=== PATIENT | male | born 1990 | race Caucasian/White ===

== ENCOUNTER → 2019-12-15 14:02 | Outpatient (BNVA) | payer SELFPAY | PROVIDERS: Family Provider Family Medicine; Visit Provider Nurse Practitioner | DX: J02.9 Acute pharyngitis, unspecified (principal); J01.90 Acute sinusitis, unspecified | CPT/HCPCS: 87071; 87880 ==

== ENCOUNTER 2020-07-31 09:22 | Outpatient (CLI) | payer OTHER, SELFPAY ==
--- NOTE | 2020-07-31 09:29 | XR_ITS ---
WS: [id number] PROCEDURE: XR chest 2V* [id number] CLINICAL INFORMATION: REGULATED PROGRAM MONITERING COMPARISON: FINDINGS: Heart: Normal cardiac silhouette. Lungs: Lungs are clear. No consolidation or pleural fluid. No acute pulmonary infiltrates. Bones: Normal visualized bony structures. XR/XR chest 2V* [id number] IMPRESSION: Normal chest
== END 2020-07-31 09:23 | disposition home or self-care (01) ==
DX: Z13.6 Encounter for screening for cardiovascular disorders (principal)
CPT/HCPCS: 71046

== ENCOUNTER 2022-05-18 15:31 | Emergency (ER) | payer OTHER, SELFPAY ==
[2022-05-18 15:52] VITALS: BP 139/95; PULSE 85; RESP 16; TEMP 36.6; O2SAT 99
--- NOTE | 2022-05-18 15:55 | W.ED.HEATRA ---
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 No LOC. Patient has been acting normal since event. MD Complaint: head injury Onset (ago): hour(s) Mechanism of Injury: work related injury Place: home Loss of Consciousness: no Severity: mild Radiation: none Other Injuries: none Associated symptoms: Reports no associated symptoms; Deny confusion, nausea, neck pain, vertigo or vomiting Review of Systems Eyes: Denies: change in vision, blurry vision or blind spots GI: Denies: nausea or vomiting Musc: Denies: neck pain Skin/Breast: Reports: other (scalp laceration) Neuro: Reports: headache(s); Denies: numbness in extremities, weakness in extremities, sensory changes, lack of coordination, difficulty walking, dizziness, vertigo, confusion, behavioral changes, Slurred speech present, difficulty communicating thoughts or seizure-like activity PFS ED PFSH: Social History Smoking and tobacco status: former smoker Physical Exam Const: COMMON NORMALS: no acute distress, average body habitus, patient oriented x3, no limitations, healthy appearing, alert and well nourished GENERAL APPEARANCE: cooperative ORIENTATION/CONSCIOUSNESS: Yes awake, Yes oriented to person, Yes oriented to place and Yes oriented to time HENMT: COMMON NORMALS: normocephalic HEAD & SCALP: normal to inspection and normocephalic HEAD IMAGES: 1. 2cm linear scalp laceration FACE & SINUS: normal facial exam Neck/C-Spine: COMMON NORMALS: full ROM CERVICAL SPINE: No Cervical spine tenderness Neuro: ATIF COMA SCALE: document GCS findings Atif coma scale eye opening: Spontaneous Atif coma scale verbal response: Orientated Atif coma scale motor response: Obey commands Atif coma scale total score: 15 COMMON NORMALS: patient oriented x3, CN's II-XII intact bilaterally, moves all extremities, no focal motor deficits, no sensory deficits noted and gait normal SENSORIUM/ORIENTATION: Yes alert, Yes oriented to person, Yes oriented to place and Yes oriented to time Skin: TRAUMA: laceration Procedures Laceration Laceration 1: Site: scalp Size (cm): 2.0 Description: linear Depth: simple, single layer Local Anesthetic: lidocaine 1% Amount of anesthesia used (mL): 3.0 Pre-repair: wound explored and irrigated extensively Skin layer closed with: other (morris) Number of sutures: 4 Technique: simple, interrupted Course Vital Signs: Vital signs: Vital Signs Temperature 97.8 F 05/18/22 15:52 Pulse Rate 85 05/18/22 15:52 Respiratory Rate 16 05/18/22 15:52 Blood Pressure 139/95 05/18/22 15:52 Pulse Oximetry 99 05/18/22 15:52 MDM - Head Injury Medcial Decision Making Wound was copiously irrigated and repaired as documented. Wound care as well as minor head injury precautions discussed. Return to ED precautions discussed. Discharge Plan Discharge Patient Disposition: Home Clinical Impression: Laceration of scalp Qualifiers: Encounter type: initial encounter Qualified Code(s): S01.01XA - Laceration without foreign body of scalp, initial encounter Condition: Stable Prescriptions: No Action No Known Home Medications amoxicillin 500 mg capsule 1,000 mg PO BID 7 Days Qty: 28 0RF Discharge Orders: Discharge ED (Routine); Ordered 05/18/22 Ordered By: Sonia Moore Patient Instructions: Scalp Laceration, Staple Care (ED) Activity Restrictions/Additional Instructions: Keep wound/laceration clean with warm soap and water twice daily. Monitor for signs of infection such as redness, swelling, increased pain, or drainage. Please seek medical re-evaluation if these occur. If you received sutures/morris today these will need to be removed (unless you were told by the provider that they are absorbable). The provider should have discussed with you the length of time until removal-7 DAYS. You may return to the emergency department for this service. Coding Level of Care Code ED Sales Planning Manager for Alba Mendoza
== END 2022-05-18 16:18 | disposition home or self-care (01) ==
PROVIDERS: Emergency Provider Physician Assistant
DX: S01.01XA Laceration without foreign body of scalp, initial encounter (principal); Z87.891 Personal history of nicotine dependence; W20.8XXA Other cause of strike by thrown, projected or falling object, initial encounter
CPT/HCPCS: 12001; 99282

== ENCOUNTER 2022-05-19 10:01 | Outpatient (CLI) | payer OTHER, SELFPAY ==
--- NOTE | 2022-05-19 | XR_ITS ---
WS: [id number] Exam: XR chest 2V* [id number] Date/Time of Exam: 05/19/2022 10:17 AM Reason For Exam: REGULATED PROGRAM MONITORING Comparison 07/31/2020. Findings: The lungs are clear and fully expanded. Costophrenic angles are sharp. No infiltrates. Bronchovascula r relief appears normal. Cardiac silhouette is unremarkable. Bony elements are intact. XR/XR chest 2V* [id number] IMPRESSION: Unremarkable chest radiograph.
== END 2022-05-19 10:02 | disposition home or self-care (01) ==
LOC: RAD 07-08 12:52
PROVIDERS: Visit Provider Preventive Medicine Occupational Medicine
DX: Z13.6 Encounter for screening for cardiovascular disorders (principal)
CPT/HCPCS: 71046

== ENCOUNTER 2022-11-13 09:17 | Emergency (ER) | payer OTHER, SELFPAY ==
--- NOTE | 2022-11-13 09:19 | XR_ITS ---
WS: [id number] XR chest 1V portable [id number] REASON FOR EXAM: cp FINDINGS: The chest is stable compared to 05/19/2022. The heart and mediastinum are within normal limits. Calcified granulomatous disease in both hemithoraces. No active pulmonary parenchymal or pleural disease is noted. No significant abnormality of the bony thorax. XR/XR chest 1V portable [id number] IMPRESSION: No significant chest abnormality.
[2022-11-13 09:20] VITALS: BP 135/87; PULSE 84; RESP 17; TEMP 37.2; O2SAT 100; BMI 26.1
--- NOTE | 2022-11-13 09:22 | ECG_ITS ---
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 Measurements Intervals [place] Rate: 76 P: 38 WI: 163 QRS: 66 QRSD: 92 T: 51 QT: 370 QTc: 416 Interpretive Statements SINUS RHYTHM Compared to ECG 06/18/2018 19:11:06 No significant changes Electronically Signed On 11-13-2022 13:00:56 CDT by Sara Bean M.D. [id number] f
[2022-11-13 09:46] LABS: Basophils % 0.3 %; Eosinophils # 0.1 10^3/uL (0.0-0.8); Eosinophils % 0.8 %; Hematocrit 45.4 % (42.0-52.0); Hemoglobin 15.9 g/dL (11.7-16.6); Lymphocytes # 1.8 10^3/uL (0.8-4.8); Lymphocytes % 27.7 %; Mean Corpuscular Hemoglobin 28.8 pg (28.0-34.0); Mean Corpuscular Volume 82.1 fl (80-94); Mean Platelet Volume 9.8 fL (7.4-10.4); Monocytes # 0.7 10^3/uL (0.2-0.9); Monocytes % 10.3 %; Neutrophils # 3.87 10^3/uL (1.8-7.7); Neutrophils % 60.7 %; Nucleated Red Blood Cells % 0 %; Platelet Count 286 10^3/cmm (130-400); Red Blood Count 5.53 10^6/uL (4.1-5.3); Red Cell Distribution Width 11.9 % (12.1-15.1); White Blood Count 6.4 10^3/uL (4.0-10.0)
--- NOTE | 2022-11-13 09:46 | CT_ITS ---
WS: [id number] CT HEAD NONCONTRAST HISTORY: Presyncopal episode, left arm numbness TECHNIQUE: Contiguous axial imaging performed through the brain in 2.5 mm imaging. Bone and soft tiss ue windows. Sagittal and coronal reformats reviewed. All CT scans at [facility] use at least one of these dose optimization techniques: automated exposure control; mA and/or kV adjustment per pa tient size (includes targeted exams where dose is matched to clinical indication); or iterative recon struction. DLP: 1130.77 mGy.cm COMPARISON: 07/18/2016 No acute intracranial hemorrhage, midline shift or mass effect. No atrophy or prior infarcts or herniation. Ventricles: Normal size with no hydrocephalus. No inferior displacement of the cerebellar tonsils. Paranasal sinuses: As visualized are clear. Mastoid air cells: Well pneumatized. Calvarium and scalp: Skull is intact with no soft tissue edema or swelling. CT/CT head wo con* [id number] IMPRESSION: Negative head CT.
--- NOTE | 2022-11-13 09:47 | W.ED.WEAKNES ---
Documented by User: BERLIN uHa 11/13/22 11:57 HPI - Weakness General: Chief complaint: Weakness Stated complaint: CHEST PAIN/ NEAR SYNCOPE Time Seen by Provider: 11/13/22 09:19 History of Present Illness: Patient is a 32-year-old male who comes to the ED via EMS for near syncopal episode and chest pain. Patient says symptoms started while he was at work just prior to arrival. He woke up feeling normal today and denies any preceding symptoms over the past couple days. Today while at work he was sitting down and when he went to stand up he started walking and he got nauseous, lightheaded and his heart was pounding in his chest. He was having chest pain as well on the left side of his chest and then he felt the numbness tingling and pain radiating down his left arm. He also endorses the pain radiating to the middle of his back. He describes hearing his heart pounding in his ears. He was getting confused and his coworker said they were trying to talk to him and when he would talk it was not making much sense or he was having difficulty even speaking. Patient describes feeling like right on the verge of about to pass out but he did not. He was then brought in by EMS and says symptoms have mostly resolved but he still has a little bit of mild chest pain and he describes his head as feeling woozy and lightheaded. Denies any drug use. Patient has a history of hereditary hemorrhagic telangiectasia. Patient says he only complication or symptoms he has had of his HHT in the past is more frequent nosebleeds. Associated symptoms: Reports chest pain, confusion and nausea; Denies chills, dysuria, fever(s), headache(s) or vomiting Review of Systems Const: Denies: fever(s), chills or fatigue Eyes: Denies: change in vision or eye discomfort ENMT: Denies: throat pain, odynophagia, nasal discharge or nasal congestion Card: Reports: chest pain, lightheadedness and pre-syncope; Denies: palpitations, edema, swelling of feet/ankles, dyspnea on exertion or orthopnea Resp: Denies: dyspnea, productive cough or non-productive cough GI: Reports: nausea; Denies: abdominal pain, vomiting, diarrhea, constipation or hematochezia : Denies: flank pain, difficulty urinating, dysuria or hematuria Musc: Denies: neck pain, back pain or extremity swelling Skin/Breast: Denies: rash or new lesions Neuro: Reports: numbness in extremities (Left arm), dizziness and confusion; Denies: headache(s) or weakness in extremities PFSH ED PFSH: Medical History HHT (hereditary hemorrhagic telangiectasia) Surgical History No pertinent past surgical history Social History Smoking and tobacco status: former smoker Physical Exam Const: COMMON NORMALS: no acute distress, patient oriented x3 and alert HENMT: COMMON NORMALS: normocephalic HEAD & SCALP: normocephalic MOUTH: Normal oral and palatal mucosa present THROAT: posterior oropharynx normal and uvula midline Eye: COMMON NORMALS: Equal, round and reactive pupils present and EOMs intact bilaterally GENERAL EYE: appearance normal, both eyes and all related structures PUPIL: Yes Equal, round and reactive pupils present Neck/C-Spine: COMMON NORMALS: supple GENERAL: Yes normal visual inspection Lymph: LYMPHATIC: no lymphadenopathy noted Resp: COMMON NORMALS: normal respiratory effort, No retractions, No use of accessory muscles and clear to auscultation bilaterally AUSCULTATION: clear to auscultation bilaterally Cardio: COMMON NORMALS: regular rate, regular rhythm, S1 normal heart sound present, S2 normal heart sound present, No gallops present (Cardio), No clicks present (Cardio), No murmurs present (Cardio) and Peripheral pulses 2+ throughout RATE: regular rate RHYTHM: regular rhythm HEART SOUNDS: S1 normal heart sound present and S2 normal heart sound present PERIPHERAL PULSES: Peripheral pulses 2+ throughout GI: COMMON NORMALS: Normal to inspection, nondistended, normoactive bowel sounds present, Soft to palpation, non-tender and no masses PALPATION: Yes Soft to palpation : COMMON NORMALS: Yes no CVA tenderness BLADDER/KIDNEY EXAM: Yes no CVA tenderness Back/Pelvis: COMMON NORMALS: no CVA tenderness Extremity: GENERAL: Yes normal exam except as noted Neuro: COMMON NORMALS: patient oriented x3, CN's II-XII intact bilaterally, moves all extremities, no focal motor deficits and no sensory deficits noted SENSORIUM/ORIENTATION: Yes alert COORDINATION/BALANCE: [id number] test normal SPEECH: speech normal SENSORY EXAM: Yes extremities (intact) MOTOR EXAM: 5/5 motor strength present throughout and Pronator motor function not present COORDINATION: [id number] test normal Skin: COMMON NORMALS: no rashes or lesions noted GENERAL SKIN EXAM: no rashes or lesions noted and dry skin Course Reevaluation(s): Reevaluation #1: I went in and checked on patient and he is feeling a lot better now. He does not have any more pain radiating into his back and denies any nausea Time: 10:23 Vital Signs: Vital signs: Vital Signs Temperature 98.9 F 11/13/22 09:20 Pulse Rate 67 11/13/22 12:14 Respiratory Rate 18 11/13/22 12:14 Blood Pressure 118/84 11/13/22 12:14 Pulse Oximetry 100 11/13/22 12:14 Oxygen Delivery Me thod Room Air 11/13/22 11:29 MDM - Weakness Medical Decision Making Patient is a 32-year-old male who comes to the ED via EMS for near syncopal episode and chest pain. Patient says symptoms started while he was at work just prior to arrival. He woke up feeling normal today and denies any preceding symptoms over the past couple days. Today while at work he was sitting down and when he went to stand up he started walking and he got nauseous, lightheaded and his heart was pounding in his chest. He was having chest pain as well on the left side of his chest and then he felt the numbness tingling and pain radiating down his left arm. He also endorses the pain radiating to the middle of his back. He describes hearing his heart pounding in his ears. He was getting confused and his coworker said they were trying to talk to him and when he would talk it was not making much sense or he was having difficulty even speaking. Patient describes feeling like right on the verge of about to pass out but he did not. He was then brought in by EMS and says symptoms have mostly resolved but he still has a little bit of mild chest pain and he describes his head as feeling woozy and lightheaded. Denies any drug use. Patient has a history of hereditary hemorrhagic telangiectasia. Patient says he only complication or symptoms he has had of his HHT in the past is more frequent nosebleeds. Vitals are stable. Patient appears nontoxic and in no acute distress or pain. His exam is benign and neuro exam shows no deficits. CBC and CMP are unremarkable. Troponins negative. EKG shows normal sinus rhythm with no ST segment elevation or depression seen. Chest x-ray shows no acute findings. Head CT shows no acute findings. Patient was given a liter of IV fluids and his symptoms had resolved completely and he feels normal and back to baseline. Was diagnosed with atypical chest pain and near syncope. He was stable for discharge home and told to follow-up with his PCP within the next week for reevaluation. Return to ED precautions given. Patient understood and agreed with plan. I discussed patient case with Dr. Marcus and he agreed with plan. Lab Data I reviewed the patient's lab results. 11/13/22 09:02 11/13/22 09:02 Radiology Impressions Chest X-Ray 11/13/22 09:19 IMPRESSION: No significant chest abnormality. Head CT 11/13/22 09:46 IMPRESSION: Negative head CT. Laboratory Results WBC 6.4 10^3/uL (4.0-10.0) 11/13/22 09:02 RBC 5.53 10^6/uL (4.1-5.3) H 11/13/22 09:02 Hgb 15.9 g/dL (11.7-16.6) 11/13/22 09:02 Hct 45.4 % (42.0-52.0) 11/13/22 09:02 MCV 82.1 fl (80-94) 11/13/22 09:02 MCH 28.8 pg (28.0-34.0) 11/13/22 09:02 MCHC 35.0 g/dL (30.0-36.0) 11/13/22 09:02 RDW 11.9 % (12.1-15.1) L 11/13/22 09:02 Plt Count 286 10^3/cmm (130-400) 11/13/22 09:02 MPV 9.8 fL (7.4-10.4) 11/13/22 09:02 Neut % (Auto) 60.7 % 11/13/22 09:02 Lymph % (Auto) 27.7 % 11/13/22 09:02 Churchill % (Auto) 10.3 % 11/13/22 09:02 Eos % (Auto) 0.8 % 11/13/22 09:02 Baso % (Auto) 0.3 % 11/13/22 09:02 Neut # (Auto) 3.87 10^3/uL (1.8-7.7) 11/13/22 09:02 Lymph # (Auto) 1.8 10^3/uL (0.8-4.8) 11/13/22 09:02 Churchill # (Auto) 0.7 10^3/uL (0.2-0.9) 11/13/22 09:02 Eos # (Auto) 0.1 10^3/uL (0.0-0.8) 11/13/22 09:02 Baso # (Auto) 0.0 10^3/uL (0.0-0.1) 11/13/22 09:02 Nucleated RBC % (auto) 0 % 11/13/22 09:02 Nucleated RBCs # 0.0 /100WBC 11/13/22 09:02 Sodium 137 mmol/L (136-145) 11/13/22 09:02 Potassium 4.1 mmol/L (3.5-5.1) 11/13/22 09:02 Chloride 103 mmol/L (98-107) 11/13/22 09:02 Carbon Dioxide 21 mmol/L (22-29) L 11/13/22 09:02 Anion Gap 17.1 (5-19) 11/13/22 09:02 BUN 16 mg/dL (6-20) 11/13/22 09:02 Creatinine 0.8 mg/dL (0.7-1.2) 11/13/22 09:02 GFR Calculation 112.0 mL/min (90-130) 11/13/22 09:02 Glucose 101 mg/dL (65-115) 11/13/22 09:02 Calculated Osmolality 285 mOsm/kg (285-295) 11/13/22 09:02 Calcium 9.8 mg/dL (8.5-10.5) 11/13/22 09:02 Total Bilirubin 0.9 mg/dL (0.15-1.2) 11/13/22 09:02 AST 15 U/L (0-40) 11/13/22 09:02 ALT 14 U/L (0-41) 11/13/22 09:02 Alkaline Phosphatase 51 U/L (40-130) 11/13/22 09:02 Troponin T Baseline 6 ng/L (0-15) 11/13/22 09:02 Troponin T 120 Minute 7.11 ng/L (0-15) 11/13/22 11:13 Delta Troponin T 1.11 ABS# (0-10) 11/13/22 11:13 Total Protein 7.2 g/dL (6.6-8.7) 11/13/22 09:02 Albumin 5.0 g/dL (3.5-5.2) 11/13/22 09:02 Globulin 2.2 g/dL (1.3-4.6) 11/13/22 09:02 EKG Data EKG 1: EKG interpretation date: 11/13/22 Interpretation: Normal sinus rhythm, 76 bpm, no ST segment elevation or depression seen. Discharge Plan Discharge Patient Disposition: Home Clinical Impression: Near syncope, Atypical chest pain Condition: Stable Prescriptions: No Action famotidine 20 mg tablet 20 mg PO BID Discharge Orders: Discharge ED (Routine); Ordered 11/13/22 Ordered By: Trae Pelayo Discharge Diet: Regular Discharge Activity: Increase activity as tolerated Patient Instructions: Chest Pain (ED), Near Syncope (ED), Noncardiac Chest Pain (ED) Activity Restrictions/Additional Instructions: Follow-up with medical provider as directed in the next 5 to 7 days for reevaluation. Return to the ER or your medical provider if condition worsens. Please read and understand discharge instructions. Thank you for choosing [facility] for your healthcare needs today. Please realize this is an emergency room and that we are providing you with a medical screening exam and this may not be complete and all inclusive of all the testing and or work up that you may need to determine your ailment or severity of your illness. It is very important that you follow up as instructed or that you return to the Emergency Department should you have concerns or if your condition changes or worsens in any way. Coding Level of Care Code ED Emergency Vehicle Operations Instructor for Chg Fwd Documented by User: Mason Marcus DO 11/13/22 13:51 HPI - Weakness General: Chief complaint: Weakness Stated complaint: CHEST PAIN/ NEAR SYNCOPE Time Seen by Provider: 11/13/22 09:19 [facility] ED PFSH: Medical History HHT (hereditary hemorrhagic telangiectasia) Surgical History No pertinent past surgical history Social History Smoking and tobacco status: former smoker Course Vital Signs: Vital signs: Vital Signs Temperature 98.9 F 11/13/22 09:20 Pulse Rate 67 11/13/22 12:14 Respiratory Rate 18 11/13/22 12:14 Blood Pressure 118/84 11/13/22 12:14 Pulse Oximetry 100 11/13/22 12:14 Oxygen Delivery Me thod Room Air 11/13/22 11:29 MDM - Weakness Medical Decision Making Patient is a 32-year-old male who comes to the ED via EMS for near syncopal episode and chest pain. Patient says symptoms started while he was at work just prior to arrival. He woke up feeling normal today and denies any preceding symptoms over the past couple days. Today while at work he was sitting down and when he went to stand up he started walking and he got nauseous, lightheaded and his heart was pounding in his chest. He was having chest pain as well on the left side of his chest and then he felt the numbness tingling and pain radiating down his left arm. He also endorses the pain radiating to the middle of his back. He describes hearing his heart pounding in his ears. He was getting confused and his coworker said they were trying to talk to him and when he would talk it was not making much sense or he was having difficulty even speaking. Patient describes feeling like right on the verge of about to pass out but he did not. He was then brought in by EMS and says symptoms have mostly resolved but he still has a little bit of mild chest pain and he describes his head as feeling woozy and lightheaded. Denies any drug use. Patient has a history of hereditary hemorrhagic telangiectasia. Patient says he only complication or symptoms he has had of his HHT in the past is more frequent nosebleeds. Vitals are stable. Patient appears nontoxic and in no acute distress or pain. His exam is benign and neuro exam shows no deficits. CBC and CMP are unremarkable. Troponins negative. EKG shows normal sinus rhythm with no ST segment elevation or depression seen. Chest x-ray shows no acute findings. Head CT shows no acute findings. Patient was given a liter of IV fluids and his symptoms had resolved completely and he feels normal and back to baseline. Was diagnosed with atypical chest pain and near syncope. He was stable for discharge home and told to follow-up with his PCP within the next week for reevaluation. Return to ED precautions given. Patient understood and agreed with plan. I discussed patient case with Dr. Marcus and he agreed with plan. Chart reviewed and patient discussed with midlevel. Agree with assessment and plan. Lab Data 11/13/22 09:02 11/13/22 09:02 Radiology Impressions Chest X-Ray 11/13/22 09:19 IMPRESSION: No significant chest abnormality. Head CT 11/13/22 09:46 IMPRESSION: Negative head CT. Laboratory Results WBC 6.4 10^3/uL (4.0-10.0) 11/13/22 09:02 RBC 5.53 10^6/uL (4.1-5.3) H 11/13/22 09:02 Hgb 15.9 g/dL (11.7-16.6) 11/13/22 09:02 Hct 45.4 % (42.0-52.0) 11/13/22 09:02 MCV 82.1 fl (80-94) 11/13/22 09:02 MCH 28.8 pg (28.0-34.0) 11/13/22 09:02 MCHC 35.0 g/dL (30.0-36.0) 11/13/22 09:02 RDW 11.9 % (12.1-15.1) L 11/13/22 09:02 Plt Count 286 10^3/cmm (130-400) 11/13/22 09:02 MPV 9.8 fL (7.4-10.4) 11/13/22 09:02 Neut % (Auto) 60.7 % 11/13/22 09:02 Lymph % (Auto) 27.7 % 11/13/22 09:02 Churchill % (Auto) 10.3 % 11/13/22 09:02 Eos % (Auto) 0.8 % 11/13/22 09:02 Baso % (Auto) 0.3 % 11/13/22 09:02 Neut # (Auto) 3.87 10^3/uL (1.8-7.7) 11/13/22 09:02 Lymph # (Auto) 1.8 10^3/uL (0.8-4.8) 11/13/22 09:02 Churchill # (Auto) 0.7 10^3/uL (0.2-0.9) 11/13/22 09:02 Eos # (Auto) 0.1 10^3/uL (0.0-0.8) 11/13/22 09:02 Baso # (Auto) 0.0 10^3/uL (0.0-0.1) 11/13/22 09:02 Nucleated RBC % (auto) 0 % 11/13/22 09:02 Nucleated RBCs # 0.0 /100WBC 11/13/22 09:02 Sodium 137 mmol/L (136-145) 11/13/22 09:02 Potassium 4.1 mmol/L (3.5-5.1) 11/13/22 09:02 Chloride 103 mmol/L (98-107) 11/13/22 09:02 Carbon Dioxide 21 mmol/L (22-29) L 11/13/22 09:02 Anion Gap 17.1 (5-19) 11/13/22 09:02 BUN 16 mg/dL (6-20) 11/13/22 09:02 Creatinine 0.8 mg/dL (0.7-1.2) 11/13/22 09:02 GFR Calculation 112.0 mL/min (90-130) 11/13/22 09:02 Glucose 101 mg/dL (65-115) 11/13/22 09:02 Calculated Osmolality 285 mOsm/kg (285-295) 11/13/22 09:02 Calcium 9.8 mg/dL (8.5-10.5) 11/13/22 09:02 Total Bilirubin 0.9 mg/dL (0.15-1.2) 11/13/22 09:02 AST 15 U/L (0-40) 11/13/22 09:02 ALT 14 U/L (0-41) 11/13/22 09:02 Alkaline Phosphatase 51 U/L (40-130) 11/13/22 09:02 Troponin T Baseline 6 ng/L (0-15) 11/13/22 09:02 Troponin T 120 Minute 7.11 ng/L (0-15) 11/13/22 11:13 Delta Troponin T 1.11 ABS# (0-10) 11/13/22 11:13 Total Protein 7.2 g/dL (6.6-8.7) 11/13/22 09:02 Albumin 5.0 g/dL (3.5-5.2) 11/13/22 09:02 Globulin 2.2 g/dL (1.3-4.6) 11/13/22 09:02 Discharge Plan Discharge Patient Disposition: Home Clinical Impression: Near syncope, Atypical chest pain Condition: Stable Prescriptions: No Action famotidine 20 mg tablet 20 mg PO BID Discharge Orders: Discharge ED (Routine); Ordered 11/13/22 Ordered By: Trae Pelayo Discharge Diet: Regular Discharge Activity: Increase activity as tolerated Patient Instructions: Chest Pain (ED), Near Syncope (ED), Noncardiac Chest Pain (ED) Activity Restrictions/Additional Instructions: Follow-up with medical provider as directed in the next 5 to 7 days for reevaluation. Return to the ER or your medical provider if condition worsens. Please read and understand discharge instructions. Thank you for choosing [facility] for your healthcare needs today. Please realize this is an emergency room and that we are providing you with a medical screening exam and this may not be complete and all inclusive of all the testing and or work up that you may need to determine your ailment or severity of your illness. It is very important that you follow up as instructed or that you return to the Emergency Department should you have concerns or if your condition changes or worsens in any way. Coding Level of Care Code ED Emergency Vehicle Operations Instructor for Alba Mendoza
[2022-11-13 10:12] LABS: Alanine Aminotransferase 14 U/L (0-41); Alkaline Phosphatase 51 U/L (40-130); Anion Gap 17.1 (5-19); Aspartate Amino Transferase 15 U/L (0-40); Blood Urea Nitrogen 16 mg/dL (6-20); Calcium 9.8 mg/dL (8.5-10.5); Carbon Dioxide 21 mmol/L (22-29); Chloride 103 mmol/L (98-107); Creatinine Clr Calc Pharmacy 157.2458; Globulin 2.2 g/dL (1.3-4.6); Glucose 101 mg/dL (65-115); Osmolality Calculated 285 mOsm/kg (285-295); Potassium 4.1 mmol/L (3.5-5.1); Sodium 137 mmol/L (136-145); Total Bilirubin 0.9 mg/dL (0.15-1.2); Total Protein 7.2 g/dL (6.6-8.7)
[2022-11-13 10:13] LABS: Troponin(5th) Baseline 6 ng/L (0-15)
[2022-11-13] MEDS: sodium chloride 0.9% 1,000 ML 999 ML IV (10:30)
--- NOTE | 2022-11-13 11:19 | ECG_ITS ---
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 Measurements Intervals [place] Rate: 63 P: 62 SC: 159 QRS: 63 QRSD: 94 T: 54 QT: 400 QTc: 411 Interpretive Statements SINUS RHYTHM Compared to ECG 11/13/2022 09:22:54 No significant changes Electronically Signed On 11-13-2022 13:01:39 CDT by Sara Bean M.D. [id number]
[2022-11-13 11:29] VITALS: BP 127/83; PULSE 69; RESP 18; O2SAT 100
[2022-11-13 11:44] LABS: Troponin 5 2HR 7.11 ng/L (0-15)
[2022-11-13 12:14] VITALS: BP 118/84; PULSE 67; RESP 18; O2SAT 100
[2022-11-13 12:27] LABS: Troponin 5 2HR Delta 1.11 ABS# (0-10)
--- NOTE | 2022-11-14 12:54 | DCPLANNER ---
[facility]FFI called patient due to no primary care physician - patient sees Dr. Guardado
== END 2022-11-13 12:15 | disposition home or self-care (01) ==
PROVIDERS: Emergency Provider Physician Assistant
DX: R55 Syncope and collapse (principal); R07.89 Other chest pain
CPT/HCPCS: 36415; 70450; 71045; 80053; 84484; 85025; 93005; 99285; J7030

== ENCOUNTER 2022-12-23 06:16 | Outpatient (CLI) | payer OTHER, SELFPAY ==
--- NOTE | 2022-12-23 06:25 | CTR_ITS ---
PROCEDURE INFORMATION: Exam: CT Chest With Contrast; Diagnostic Exam date and time: 12/23/2022 6:36 AM Age: 32 years old Clinical indication: Condition or disease; Other: Osler hemorrhagic telangiectasia syndrome TECHNIQUE: Imaging protocol: Diagnostic computed tomography of the chest with contrast. Radiation optimization: All CT scans at this facility use at least one of these dose optimization techniques: automated exposure control; mA and/or kV adjustment per patient size (includes targeted exams where dose is matched to clinical indication); or iterative reconstruction. Contrast material: OMNI 350; Contrast volume: 100 ml; Contrast route: INTRAVENOUS (IV); REPORTING DATA: Count of CT and Cardiac NM exams in prior 12 months: This patient has received [address] and 0 known cardiac nuclear medicine studies in the 12 months prior to the current study. COMPARISON: CR XR chest 1V portable [id number] 11/13/2022 9:25 AM RADIATION DOSE METRICS: Total DLP (mGy-cm): 232.52 FINDINGS: Lungs: Unremarkable. No consolidation. No masses. Pleural spaces: Unremarkable. No pneumothorax. No pleural effusion. Heart: Unremarkable. No cardiomegaly. No pericardial effusion. Lymph nodes: Unremarkable. No enlarged lymph nodes. Vasculature: Unremarkable. No aortic aneurysm. Bones/joints: No acute findings. Soft tissues: Unremarkable. CT/CT chest w con* [id number] IMPRESSION: No acute findings.
--- NOTE | 2022-12-23 06:25 | CT_ITS ---
WS: [id number] CT HEAD WITH AND WITHOUT CONTRAST HISTORY: OSLER HEMORRHAGIC TELANGIECTASIA SYNDROME TECHNIQUE: Noncontrast 2.0 mm axial images obtained from the vertex to the skull base. Additional nellie ging performed at 2.5 mm axial images status post IV contrast. Bone and soft tissue windows are revie wed. All CT scans at [facility] use at least one of these dose optimization techniques: autom ated exposure control; mA and/or kV adjustment per patient size (includes targeted exams where dose i s matched to clinical indication); or iterative reconstruction. CONTRAST: Omnipaque 350; 100 mL IV. DLP: 1093.15 mGy.cm COMPARISON: Noncontrast CT head 11/13/2022 No acute intracranial hemorrhage, edema or midline shift. No prior atrophy and no hemorrhage. Bilateral minimally prominent veins in the posterior frontal lobes. These may be very small developme ntal venous abnormalities. No blush-like area of enhancement and no tangle of capillary recess. Dural venous sinuses are normally enhancing. Visualized w[place] of [place] is unremarkable. Paranasal sinuses as visualized: Clear. Mastoid air cells: Clear. Calvarium and scalp: Intact. CT/CT head wo/w con [id number] IMPRESSION: 1. No acute intracranial hemorrhage or large enhancing vascular mass. 2. Very small minimally prominent veins in the posterior frontal lobes. Suspec t these are small developmental venous anomalies. No AV malformation identified .
[2022-12-23] MEDS: iohexol 350 mg/mL 500 mL Btl (per mL) IV (06:52)
== END 2022-12-23 06:17 | disposition home or self-care (01) ==
PROVIDERS: PCP Family Medicine; Visit Provider Family Medicine
DX: I78.0 Hereditary hemorrhagic telangiectasia (principal)
CPT/HCPCS: 70470; 71260; Q9967

== ENCOUNTER 2023-09-30 11:40 | Emergency (ER) | payer OTHER, SELFPAY ==
[2023-09-30 11:59] VITALS: BP 159/82; PULSE 68; RESP 17; TEMP 36.6; O2SAT 100; BMI 24.8
--- NOTE | 2023-09-30 12:57 | ECG_ITS ---
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 Measurements Intervals [place] Rate: 63 P: 66 AK: 161 QRS: 68 QRSD: 101 T: 52 QT: 386 QTc: 398 Interpretive Statements SINUS RHYTHM Compared to ECG 11/13/2022 11:36:01 No significant changes Electronically Signed On 09-30-2023 16:49:02 CDT by Jonah Doyle M.D. [id number]
[2023-09-30 13:16] LABS: Basophils % 0.3 %; Eosinophils # 0.1 10^3/uL (0.0-0.8); Eosinophils % 0.8 %; Hematocrit 42.3 % (37-53); Lymphocytes # 1.5 10^3/uL (0.8-4.8); Lymphocytes % 23.9 %; Mean Corpuscular HGB Conc 35.2 g/dL (30-55); Mean Corpuscular Hemoglobin 29.7 pg (27-33); Mean Corpuscular Volume 84.3 fl (82-101); Mean Platelet Volume 9.4 fL (7.4-10.4); Monocytes # 0.6 10^3/uL (0.2-0.9); Monocytes % 8.7 %; Neutrophils % 66.1 %; Nucleated Red Blood Cells % 0 %; Platelet Count 275 10^3/cmm (157-399); Red Blood Count 5.02 10^6/uL (3.85-5.65); Red Cell Distribution Width 12.2 % (12.1-15.1); White Blood Count 6.35 10^3/uL (3.29-11.43)
[2023-09-30 13:32] LABS: Alanine Aminotransferase 19 U/L (0-41); Albumin Level 4.6 g/dL (3.5-5.2); Alkaline Phosphatase 51 U/L (40-130); Anion Gap 14.1 (5-19); Aspartate Amino Transferase 15 U/L (0-40); Blood Urea Nitrogen 19 mg/dL (6-20); Calcium 9.5 mg/dL (8.5-10.5); Carbon Dioxide 26 mmol/L (22-29); Chloride 104 mmol/L (98-107); Creatinine Clr Calc Pharmacy 131.7071; Globulin 2.6 g/dL (1.3-4.6); Glomerular Filtration Rate 97.2 mL/min (90-130); Glucose 92 mg/dL (65-115); Osmolality Calculated 292 mOsm/kg (285-295); Potassium 4.1 mmol/L (3.5-5.1); Sodium 140 mmol/L (136-145); Total Bilirubin 0.6 mg/dL (0.15-1.2); Total Protein 7.2 g/dL (6.6-8.7)
[2023-09-30 14:32] LABS: Add Urine Microscopic? NO; Charge for UA Resulting for Rev
[2023-09-30 14:34] LABS: Urine Appearance Clear (CLEAR); Urine Color Light yellow (Yellow); pH Urine 5 (5-7)
[2023-09-30 14:35] LABS: Bilirubin Urine Neg (Negative); Blood Urine Neg (Negative); Glucose Urine UA Norm (Normal); Ketones Urine Negative (Negative); Leukocyte Esterase Urine Negative (Negative); Nitrate Urine Negative (Negative); Protein Urine Neg (Negative); Specific Gravity, Urine 1.015 (1.005-1.030); Urobilinogen Urine Norm (Negative)
--- NOTE | 2023-09-30 14:45 | PC.PHAR ---
PT STATES ONLY TAKES FAMOTIDINE 20 MG ONCE DAILY.
[2023-09-30 14:53] VITALS: BP 142/69; PULSE 75; O2SAT 100
[2023-09-30 15:12] VITALS: BP 113/64; BP 120/78; BP 120/94; PULSE 69; PULSE 70; PULSE 71
[2023-09-30 15:30] VITALS: BP 115/70; PULSE 65; O2SAT 99
--- NOTE | 2023-09-30 15:44 | ED_ITS ---
Documented by User: BERLIN Cervantes 09/30/23 16:26 HPI - Dizziness 2 General: Chief Complaint: Dizziness Stated Complaint: dizziness Time Seen by Provider: 09/30/23 14:47 Source: patient Mode of arrival: ambulatory Limitations: no limitations History of Present Illness: HPI Narrative: Patient is a 33-year-old male who presents to the emergency department complaining of dizziness onset this morning. Patient notes he got out of bed and felt drunk and that he was stumbling walking to the bathroom. He notes he has had this before, and recently was worked up about it year ago for potential acute coronary syndrome, however this was ruled out. Patient recently was started on losartan a few months ago, states this has controlled his blood pressure until he took it today after noticing symptoms, found to be elevated at 190/110. He states now that he feels normal, he had slowly gone down throughout the day. He notes that he was at PT earlier, and felt himself get dizzy again while lying flat. He states that the dizziness seems to be positionally exacerbated, denies any inner ear issues. He denies any chest pain or shortness of breath. No visual changes, distal neurovascular changes, or other symptoms to report at this time. He is a very active individual and drinks significant amount of water a day. MD elicited complaint: dizziness Onset (ago): hour(s) Timing: sudden onset Severity: similar to previous episodes Description: off-balance Context: change in body position History of similar symptoms: Yes Exacerbating factors: change in body position Associated symptoms: Reports other (high blood pressure); Denies chest pain, chills, headache(s), nausea, palpitations or vomiting Associated neuro symptoms: Deny numbness in extremities Review of Systems 2 General: Reports: 10 or more systems reviewed and unremarkable except in HPI and below Const: Denies: fever(s), chills or fatigue Eyes: Denies: change in vision ENMT: Denies: throat pain, ear or mastoid pain or nasal discharge Card: Reports: other (HTN); Denies: chest pain, palpitations, swelling of feet/ankles or lightheadedness Resp: Denies: dyspnea, productive cough or wheezing GI: Denies: abdominal pain, nausea, vomiting, diarrhea or constipation : Denies: flank pain, difficulty urinating, dysuria or urinary frequency Musc: Denies: neck pain, back pain or joint pain Skin/Breast: Denies: rash Neuro: Reports: dizziness; Denies: headache(s), numbness in extremities or weakness in extremities PFSH ED 2 PFSH: Medical History HHT (hereditary hemorrhagic telangiectasia) Surgical History No pertinent past surgical history Social History Smoking and tobacco/nicotine status: former use of tobacco/nicotine Physical Exam 2 Const: COMMON NORMALS: no acute distress, patient oriented x3 and no limitations GENERAL APPEARANCE: cooperative, comfortable and well developed ORIENTATION/CONSCIOUSNESS: Yes awake, Yes oriented to person, Yes oriented to place and Yes oriented to time HENMT: COMMON NORMALS: normocephalic, atraumatic and hearing grossly normal bilaterally HEAD & SCALP: normocephalic and atraumatic Eye: COMMON NORMALS: Equal, round and reactive pupils present, EOMs intact bilaterally and conjunctivae normal CONJUNCTIVA: Yes conjunctivae normal P UPIL: Yes Equal, round and reactive pupils present Neck/C-Spine: COMMON NORMALS: full ROM, supple and no JVD Resp: COMMON NORMALS: normal respiratory effort, No retractions, No use of accessory muscles and clear to auscultation bilaterally AUSCULTATION: clear to auscultation bilaterally Cardio: COMMON NORMALS: no JVD, regular rate, regular rhythm, No clicks present (Cardio), No murmurs present (Cardio) and No rub (Cardio) RATE: r egular rate RHYTHM: regular rhythm GI: COMMON NORMALS: Normal to inspection, nondistended, normoactive bowel sounds present, Soft to palpation and non-tender AUSCULTATION: Yes normoactive bowel sounds PALPATION: Yes Soft to palpation RECTAL EXAM: Yes deferred : COMMON NORMALS: Yes no CVA tenderness BLADDER/KIDNEY EXAM: Yes no CVA tenderness Back/Pelvis: COMMON NORMALS: no CVA tenderness, thoracic and lumbar spine normal to inspection, no thoracic nor lumbar tenderness and thoraco-lumbar ROM normal Extremity: COMMON NORMALS: normal to inspection, full ROM and capillary refill normal Neuro: COMMON NORMALS: patient oriented x3, CN's II-XII intact bilaterally, moves all extremities, no focal motor deficits and no sensory deficits noted SENSORIUM/ORIENTATION: Yes oriented to person, Yes oriented to place and Yes oriented to time Psych: COMMON NORMALS: mental status grossly normal and Normal thought process present THOUGHT PROCESS: Normal thought process present Skin: COMMON NORMALS: no rashes or lesions noted GENERAL SKIN EXAM: no rashes or lesions noted Course 2 Vital Signs: Vital signs: Vital Signs Temperature 97.9 F 09/30/23 11:59 Pulse Rate 62 09/30/23 16:49 Respiratory Rate 17 09/30/23 11:59 Blood Pressure 115/70 09/30/23 15:30 Pulse Oximetry 100 09/30/23 16:49 Oxygen Delivery Me thod Room Air 09/30/23 15:30 MDM - Dizziness Medical Decision Making Patient was seen for dizziness upon waking this morning, since resolved. His vitals were normal on arrival, blood pressure very minimally elevated and dropped to 115/70 on discharge. His lab workup negative. Urinalysis negative. Orthostatic vital signs also negative. Due to patient's transient episode of dizziness and history of reported same, encouraged him to follow-up for outpatient cardiac testing. I have very little suspicion that patient's symptoms are cardiac in nature, and will not adjust any medications. He agrees with plan for follow-up as an outpatient, and reasons to return are thoroughly discussed. Lab Data I reviewed the patient's lab results. 09/30/23 13:13 09/30/23 13:13 Laboratory Results WBC 6.35 10^3/uL (3.29-11.43) 09/30/23 13:13 RBC 5.02 10^6/uL (3.85-5.65) 09/30/23 13:13 Hgb 14.90 g/dL (11.27-16.99) 09/30/23 13:13 Hct 42.3 % (37-53) 09/30/23 13:13 MCV 84.3 fl (82-101) 09/30/23 13:13 MCH 29.7 pg (27-33) 09/30/23 13:13 MCHC 35.2 g/dL (30-55) 09/30/23 13:13 RDW 12.2 % (12.1-15.1) 09/30/23 13:13 Plt Count 275 10^3/cmm (157-399) 09/30/23 13:13 MPV 9.4 fL (7.4-10.4) 09/30/23 13:13 Neut % (Auto) 66.1 % 09/30/23 13:13 Lymph % (Auto) 23.9 % 09/30/23 13:13 [place] % (Auto) 8.7 % 09/30/23 13:13 Eos % (Auto) 0.8 % 09/30/23 13:13 Baso % (Auto) 0.3 % 09/30/23 13:13 Neut # (Auto) 4.20 10^3/uL (1.8-7.7) 09/30/23 13:13 Lymph # (Auto) 1.5 10^3/uL (0.8-4.8) 09/30/23 13:13 [place] # (Auto) 0.6 10^3/uL (0.2-0.9) 09/30/23 13:13 Eos # (Auto) 0.1 10^3/uL (0.0-0.8) 09/30/23 13:13 Baso # (Auto) 0.0 10^3/uL (0.0-0.1) 09/30/23 13:13 Nucleated RBC % (auto) 0 % 09/30/23 13:13 Nucleated RBCs # 0.0 /100WBC 09/30/23 13:13 Sodium 140 mmol/L (136-145) 09/30/23 13:13 Potassium 4.1 mmol/L (3.5-5.1) 09/30/23 13:13 Chloride 104 mmol/L (98-107) 09/30/23 13:13 Carbon Dioxide 26 mmol/L (22-29) 09/30/23 13:13 Anion Gap 14.1 (5-19) 09/30/23 13:13 BUN 19 mg/dL (6-20) 09/30/23 13:13 Creatinine 0.9 mg/dL (0.7-1.2) 09/30/23 13:13 GFR Calculation 97.2 mL/min (90-130) 09/30/23 13:13 Glucose 92 mg/dL (65-115) 09/30/23 13:13 Calculated Osmolality 292 mOsm/kg (285-295) 09/30/23 13:13 Calcium 9.5 mg/dL (8.5-10.5) 09/30/23 13:13 Total Bilirubin 0.6 mg/dL (0.15-1.2) 09/30/23 13:13 AST 15 U/L (0-40) 09/30/23 13:13 ALT 19 U/L (0-41) 09/30/23 13:13 Alkaline Phosphatase 51 U/L (40-130) 09/30/23 13:13 Total Protein 7.2 g/dL (6.6-8.7) 09/30/23 13:13 Albumin 4.6 g/dL (3.5-5.2) 09/30/23 13:13 Globulin 2.6 g/dL (1.3-4.6) 09/30/23 13:13 Urine Color Light yellow (Yellow) 09/30/23 13:29 Urine Appearance Clear (CLEAR) 09/30/23 13:29 Urine pH 5 (5-7) 09/30/23 13:29 Ur Specific [place] 1.015 (1.005-1.030) 09/30/23 13:29 Urine Protein Neg (Negative) 09/30/23 13:29 Urine Glucose (UA) Norm (Normal) 09/30/23 13:29 Urine Ketones Negative (Negative) 09/30/23 13:29 Urine Blood Neg (Negative) 09/30/23 13:29 Urine Nitrate Negative (Negative) 09/30/23 13:29 Urine Bilirubin Neg (Negative) 09/30/23 13:29 Urine Urobilinogen Norm mg/dL (Negative) 09/30/23 13:29 Ur Leukocyte Esterase Negative (Negative) 09/30/23 13:29 No radiology studies performed this visit Discharge Plan Discharge Patient Disposition: Home Clinical Impression: Dizziness Condition: Stable Prescriptions: No Action famotidine 20 mg tablet 20 mg PO DAILY losartan 25 mg tablet 25 mg PO DAILY Discharge Orders: Discharge ED (Routine); Ordered 09/30/23 Ordered By: Dean Nunez Referrals: Giselle Carpenter, [facility] [Primary Care Provider] - Discharge Diet: Usual diet Discharge Activity: Increase activity as tolerated Patient Instructions: Dizziness (ED) Activity Restrictions/Additional Instructions: Plenty of fluids. Continue taking your losartan as prescribed. Follow-up with primary care as discussed for further outpatient management. If you develop any new or concerning symptoms, return for reevaluation. Coding Level of Care Code ED Desktop Operator for [facility] Fwmaricruz Documented by User: Mason Marcus DO 10/01/23 07:07 HPI - Dizziness 2 General: Chief Complaint: Dizziness Stated Complaint: dizziness Time Seen by Provider: 09/30/23 14:47 PFS ED 2 PFSH: Medical History HHT (hereditary hemorrhagic telangiectasia) Surgical History No pertinent past surgical history Social History Smoking and tobacco/nicotine status: former use of tobacco/nicotine Course 2 Vital Signs: Vital signs: Vital Signs Temperature 97.9 F 09/30/23 11:59 Pulse Rate 62 09/30/23 16:49 Respiratory Rate 17 09/30/23 11:59 Blood Pressure 115/70 09/30/23 15:30 Pulse Oximetry 100 09/30/23 16:49 Oxygen Delivery Me thod Room Air 09/30/23 15:30 MDM - Dizziness Medical Decision Making Patient was seen for dizziness upon waking this morning, since resolved. His vitals were normal on arrival, blood pressure very minimally elevated and dropped to 115/70 on discharge. His lab workup negative. Urinalysis negative. Orthostatic vital signs also negative. Due to patient's transient episode of dizziness and history of reported same, encouraged him to follow-up for outpatient cardiac testing. I have very little suspicion that patient's symptoms are cardiac in nature, and will not adjust any medications. He agrees with plan for follow-up as an outpatient, and reasons to return are thoroughly discussed. Chart reviewed Lab Data 09/30/23 13:13 09/30/23 13:13 Laboratory Results WBC 6.35 10^3/uL (3.29-11.43) 09/30/23 13:13 RBC 5.02 10^6/uL (3.85-5.65) 09/30/23 13:13 Hgb 14.90 g/dL (11.27-16.99) 09/30/23 13:13 Hct 42.3 % (37-53) 09/30/23 13:13 MCV 84.3 fl (82-101) 09/30/23 13:13 MCH 29.7 pg (27-33) 09/30/23 13:13 MCHC 35.2 g/dL (30-55) 09/30/23 13:13 RDW 12.2 % (12.1-15.1) 09/30/23 13:13 Plt Count 275 10^3/cmm (157-399) 09/30/23 13:13 MPV 9.4 fL (7.4-10.4) 09/30/23 13:13 Neut % (Auto) 66.1 % 09/30/23 13:13 Lymph % (Auto) 23.9 % 09/30/23 13:13 [place] % (Auto) 8.7 % 09/30/23 13:13 Eos % (Auto) 0.8 % 09/30/23 13:13 Baso % (Auto) 0.3 % 09/30/23 13:13 Neut # (Auto) 4.20 10^3/uL (1.8-7.7) 09/30/23 13:13 Lymph # (Auto) 1.5 10^3/uL (0.8-4.8) 09/30/23 13:13 [place] # (Auto) 0.6 10^3/uL (0.2-0.9) 09/30/23 13:13 Eos # (Auto) 0.1 10^3/uL (0.0-0.8) 09/30/23 13:13 Baso # (Auto) 0.0 10^3/uL (0.0-0.1) 09/30/23 13:13 Nucleated RBC % (auto) 0 % 09/30/23 13:13 Nucleated RBCs # 0.0 /100WBC 09/30/23 13:13 Sodium 140 mmol/L (136-145) 09/30/23 13:13 Potassium 4.1 mmol/L (3.5-5.1) 09/30/23 13:13 Chloride 104 mmol/L (98-107) 09/30/23 13:13 Carbon Dioxide 26 mmol/L (22-29) 09/30/23 13:13 Anion Gap 14.1 (5-19) 09/30/23 13:13 BUN 19 mg/dL (6-20) 09/30/23 13:13 Creatinine 0.9 mg/dL (0.7-1.2) 09/30/23 13:13 GFR Calculation 97.2 mL/min (90-130) 09/30/23 13:13 Glucose 92 mg/dL (65-115) 09/30/23 13:13 Calculated Osmolality 292 mOsm/kg (285-295) 09/30/23 13:13 Calcium 9.5 mg/dL (8.5-10.5) 09/30/23 13:13 Total Bilirubin 0.6 mg/dL (0.15-1.2) 09/30/23 13:13 AST 15 U/L (0-40) 09/30/23 13:13 ALT 19 U/L (0-41) 09/30/23 13:13 Alkaline Phosphatase 51 U/L (40-130) 09/30/23 13:13 Total Protein 7.2 g/dL (6.6-8.7) 09/30/23 13:13 Albumin 4.6 g/dL (3.5-5.2) 09/30/23 13:13 Globulin 2.6 g/dL (1.3-4.6) 09/30/23 13:13 Urine Color Light yellow (Yellow) 09/30/23 13:29 Urine Appearance Clear (CLEAR) 09/30/23 13:29 Urine pH 5 (5-7) 09/30/23 13:29 Ur Specific [place] 1.015 (1.005-1.030) 09/30/23 13:29 Urine Protein Neg (Negative) 09/30/23 13:29 Urine Glucose (UA) Norm (Normal) 09/30/23 13:29 Urine Ketones Negative (Negative) 09/30/23 13:29 Urine Blood Neg (Negative) 09/30/23 13:29 Urine Nitrate Negative (Negative) 09/30/23 13:29 Urine Bilirubin Neg (Negative) 09/30/23 13:29 Urine Urobilinogen Norm mg/dL (Negative) 09/30/23 13:29 Ur Leukocyte Esterase Negative (Negative) 09/30/23 13:29 Discharge Plan Discharge Patient Disposition: Home Clinical Impression: Dizziness Condition: Stable Prescriptions: No Action famotidine 20 mg tablet 20 mg PO DAILY losartan 25 mg tablet 25 mg PO DAILY Discharge Orders: Discharge ED (Routine); Ordered 09/30/23 Ordered By: Dean Nunez Referrals: Giselle Carpenter, [facility] [Primary Care Provider] - Discharge Diet: Usual diet Discharge Activity: Increase activity as tolerated Patient Instructions: Dizziness (ED) Activity Restrictions/Additional Instructions: Plenty of fluids. Continue taking your losartan as prescribed. Follow-up with primary care as discussed for further outpatient management. If you develop any new or concerning symptoms, return for reevaluation. Coding Level of Care Code ED Desktop Operator for Alba Mendoza
[2023-09-30 16:49] VITALS: PULSE 62; O2SAT 100
== END 2023-09-30 16:51 | disposition home or self-care (01) ==
PROVIDERS: Emergency Medicine; Emergency Provider Physician Assistant; PCP Nurse Practitioner Family
DX: R42 Dizziness and giddiness (principal); Z87.891 Personal history of nicotine dependence
CPT/HCPCS: 36415; 80053; 81003; 85025; 93005; 99284

== ENCOUNTER 2025-01-20 14:11 | Outpatient (CLI) | payer OTHER, SELFPAY ==
--- NOTE | 2025-01-20 14:24 | US_ITS ---
WS: [id number] RENAL ULTRASOUND URINARY BLADDER ULTRASOUND HISTORY: NOCTURIA/FAMILY HX OF KIDNEY DZ/FLANK PAIN/URINARY SYMPTOMS COMPARISON: None available. TECHNIQUE: 2-D and color Doppler imaging of the kidney submitted. Right kidney: 10.6 cm x 5.2 cm x 4.2 cm. Normal echogenicity with no hydronephrosis or mass. Left kidney: 10.6 cm x 4.6 cm x 4.8 cm. Normal echogenicity with no hydronephrosis or mass. Aorta: Normal. Urinary Bladder: Normal distention. Prevoid volume: 342 mL. Post void volume: 6 mL. US/US renal BI with PV bladder IMPRESSION: Normal renal ultrasound. Normal urinary bladder. No post void residual.
== END 2025-01-20 14:12 | disposition home or self-care (01) ==
PROVIDERS: PCP Nurse Practitioner Family; Visit Provider Nurse Practitioner Family
DX: R35.1 Nocturia (principal); Z84.1 Family history of disorders of kidney and ureter; R10.9 Unspecified abdominal pain; R39.9 Unspecified symptoms and signs involving the genitourinary system
CPT/HCPCS: 76770; 76857